=== PATIENT | male | born 1965 | race Caucasian/White ===

== ENCOUNTER 2022-03-28 19:55 | Inpatient (IN) ==
--- NOTE | 2022-03-28 23:21 | Emergency Department Note ---
History of Present Illness General Chief complaint: Abdominal Pain Stated complaint: ABD PAIN Time Seen by Provider: 03/28/22 23:11 History of Present Illness Maximum Pain Intensity: 1 56-year-old male presents emergency department with approximately 12-hour history of a nagging epigastric abdominal cramping pain. Patient states it is nonradiating it started earlier this morning. Patient denies vomiting denies diarrhea. Patient recently had blood work that was normal. Patient states that he does take a statin. Patient denies chest pressure or shortness of breath. Patient states that he did take an Nexium he has a history of some gastritis in the past. Patient was concerned as the pain continues and is nagging in nature. There is no radiation to the back. Is currently mild to moderate. There are no other mitigating or alleviating factors. Patient states normal bowel movement today. Home Medications Medication Instructions Recorded Confirmed Type ASPIRIN 325 mg PO DAILY ##0 07/23/15 History Amlodipine (Norvasc) 5 mg PO DAILY #0 tabs 07/23/15 History CLONIDINE HCL (CATAPRES) 0.2 mg PO BID #0 tabs 07/23/15 History ESOMEPRAZOLE MAGNESIUM (NEXIUM) 40 mg PO DAILY #0 caps 07/23/15 History Propranolol (Inderal) 120 mg PO BID #0 tabs 07/23/15 History Allergies Allergy/AdvReac Type Severity Reaction Status Date / Time No Known Allergies Allergy Unverified 07/23/15 22:04 Past Med/Surg History Medical History (Updated 03/29/22 @ 02:03 by Mariusz Jolley DO) GERD (gastroesophageal reflux disease) Hypertension Migraine Social History Smoking Status: Never smoker current occupational status: employed Feels Safe at Home: Yes 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 Review of Systems A total of 10 systems reviewed and were otherwise negative Constitutional: no fever Respiratory: no cough Cardiovascular: no chest pain Gastrointestinal: + abdominal pain; no cramping, no constipation and no fecal incontinence Musculoskeletal: no back pain Physical Exam Vital Signs Vital Signs - 24 hr 03/28/22 19:58 03/28/22 23:55 03/29/22 00:53 Temperature 36.8 C 36.9 C Temperature Source Temporal Artery Scan Oral Pulse Rate 79 71 Pulse Rate [Apical] 72 Respiratory Rate 18 18 16 Respiratory Effort / Characteristics Non-Labored Spontaneous Respiratory Depth Normal Blood Pressure 173/119 H 168/103 H Blood Pressure [Left Arm] 148/86 H Blood Pressure Mean 137 124 Blood Pressure Mean [Left Arm] 106 Pulse Oximetry 97 98 97 Oxygen Delivery Method Room Air Room Air Room Air Sepsis Recent Fever Within 48 Hours No Sepsis New/Unexplained Change in Mental Status No Sepsis Action Taken by Nursing No Action Required 03/29/22 01:39 Temperature 37.2 C Temperature Source Pulse Rate 88 Pulse Rate [Apical] Respiratory Rate 15 Respiratory Effort / Characteristics Respiratory Depth Blood Pressure 109/44 L Blood Pressure [Left Arm] Blood Pressure Mean 65 Blood Pressure Mean [Left Arm] Pulse Oximetry 91 Oxygen Delivery Method Room Air Sepsis Recent Fever Within 48 Hours Sepsis New/Unexplained Change in Mental Status Sepsis Action Taken by Nursing GENERAL: Patient is awake alert in no acute distress patient is resting comfortably and showing no signs of anxiety EYES: The conjunctivae are clear. The pupils are round and reactive. EARS, NOSE, MOUTH AND THROAT: The nose is without any evidence of any deformity. Mucous membranes are moist. Tongue is midline. NECK: The neck is nontender and supple. RESPIRATORY: Normal respiratory effort is noted there is no evidence of wheezing rhonchi or rales CARDIOVASCULAR: Regular rate and rhythm noted there no murmurs rubs or gallops normal S1 normal S2. GASTROINTESTINAL: The abdomen is soft. Abdomen is nontender. Normal bowel sounds there is no abnormal aortic pulsations or masses BACK: Full range of motion MUSCULOSKELETAL/EXTREMITIES: There is no evidence of gross deformity full range of motion is noted in the hips and shoulders. SKIN: There is no obvious evidence of any rash. There are no petechiae, pallor or cyanosis noted. NEUROLOGIC: Patient is awake alert and oriented x3 strength is symmetric PSYCH: Normal affect Course Reevaluation(s) Reevaluation #1: Patient was evaluated for midepigastric abdominal pain. Patient continues to have pain. Patient was found to have a small bowel obstruction on CT. I discussed the evaluation with the patient at bedside. I started him on IV fluids, fentanyl and Zofran Time: 02:03 Consultations Consultation #1: Spoke with the [facility] hospitalist for admission Time: 02:21 Administered Medications Sodium Chloride (Nss 1000ml) 1,000 mls @ 999 mls/hr IV .Q1H1M ONE Stop: 03/29/22 02:59 Last Admin: 03/29/22 02:04 Dose: 999 mls/hr Documented By: DEEPIKA Discontinued Medications Fentanyl Citrate (Fentanyl Citrate 100 Mcg/2 Ml Vial) 50 mcg IV NOW STA Stop: 03/29/22 02:00 Last Admin: 03/29/22 02:04 Dose: 50 mcg Documented By: DEEPIKA Ioversol (Optiray 300 100ml) 100 ml IV ONCE ONE Stop: 03/29/22 00:48 Last Admin: 03/29/22 00:47 Dose: 93 ml Documented By: WILTON Ondansetron HCl (Ondansetron Inj 2 Mg/Ml 2 Ml Vial) 4 mg IV NOW STA Stop: 03/29/22 02:00 Last Admin: 03/29/22 02:04 Dose: 4 mg Documented By: DEEPIKA Medical Decision Making Medical Records Attestation: I reviewed the patient's medical records. Home Medications Current Medication List: was personally reviewed by me Laboratory Data Attestation: I reviewed the patient's lab results. Result diagrams: 03/28/22 20:30 03/28/22 20:30 Lab Results 03/28/22 03/28/22 03/28/22 Range/Units 20:30 20:30 20:30 WBC 10.21 (4.8-10.8) K/ul RBC 5.44 (4.63-6.08) M/uL Hgb 15.7 (14.0-18.0) g/dl Hct 46.5 (40.1-51.0) % MCV 85.5 (80.0-100.0) fL MCH 28.9 (25.0-34.0) pg MCHC 33.8 (32.0-36.0) g/dL RDW Std Deviation 42.0 (36.4-46.3) fL RDW Coeff of Itzel 13.5 (11.5-14.5) % Plt Count 216 (130-400) K/uL MPV 13.2 H (9.4-12.4) fL Immature Gran % (Auto) 0.3 % Neut % (Auto) 63.3 % Lymph % (Auto) 26.1 % [place] % (Auto) 8.3 % Eos % (Auto) 1.5 % Baso % (Auto) 0.5 % Neut # (Auto) 6.47 (1.4-6.5) K/uL Lymph # (Auto) 2.66 (1.2-3.4) K/uL [place] # (Auto) 0.85 H (0.24-0.82) K/uL Eos # (Auto) 0.15 (0-0.50) K/uL Baso # (Auto) 0.05 (0-0.2) K/uL Immature Gran # (Auto) 0.03 H (0.00-0.02) K/uL PT 11.1 (9.0-12.0) Seconds INR 1.0 (0.9-1.1) Sodium 136 (136-145) mmol/L Potassium 4.0 (3.5-5.1) mmol/L Chloride 99 (98-107) mmol/L Carbon Dioxide 28 (21-32) mmol/L Anion Gap 9 (3-11) BUN 18 (6-23) mg/dl Creatinine 0.92 (0.6-1.4) mg/dl Est Cr Clr Drug Dosing 110.7 ml/min Est GFR ( Amer) 108.9 ml/min Est GFR (Non-Af Amer) 94.0 ml/min BUN/Creatinine Ratio 19.6 (10-20) Glucose 87 (70-99(Fasting)) mg/dl Calcium 10.2 H (8.5-10.1) mg/dl Total Bilirubin 0.7 (0.2-1.0) mg/dl AST 27 (13-39) U/L ALT 33 (7-52) U/L Alkaline Phosphatase 53 (34-104) U/L Troponin I High Sens 5.3 (0-20) pg/ml Total Protein 7.6 (6.0-8.3) gm/dl Albumin 4.7 (3.4-5.0) gm/dl Globulin 2.9 (2.5-4.0) gm/dl Albumin/Globulin Ratio 1.6 (0.9-2) Lipase 44 (11-82) U/L Imaging Data Radiologist's Impression: Patient: ROSALINO ANDREA(Male) : 69 Status: ER Date: 03/29/22 00:59 Room #: History: PAIN AT MID ABD Slices: 753 Priors: Tech: Hector Castano @ [phone] Exams: CT ABDOMEN & PELVIS With Contrast Contrast: IV Amt: 93 ML OPTIRAY 300 Accession Numbers: [id number] Referring Physician: REFERRED SELF PreliminaryFindingsOnly See Final Report For Complete Findings CT ABDOMEN & PELVIS With Contrast: Dilated loops of small bowel measure up to 4.4 cmwith a collapsed appearance of distal small bowel loops. Findings compatible with a high-grade small bowel obstruction likelyrelated to adhesions Hepatic and splenic cysts incidentallynoted Radiologist: Donald Hunter MD Study ready at 01:03 and initial results [facility] Narrative Medical decision making differential diagnosis includes gastritis pancreatitis colitis cholecystitis cholelithiasis intra-abdominal process such as AAA which I do not suspect at this time. Cardiac event. Check labs EKG, CT abdomen pelvis. Patient was evaluated for mid epigastric abdominal pain. He underwent labs and CT imaging. Patient was found to have a small bowel obstruction. The case was discussed with the hospitalist for admission. Impression & Plan Small bowel obstruction Discharge Plan Visit Data Chief Complaint: Abdominal Pain Stated Complaint: ABD PAIN ED Provider: Mariusz Jolley Discharge Problem: Small bowel obstruction Patient Disposition: Being Evaluated by Hospitalist Forms Stand Alone Forms: [employer] Prescriptions Prescriptions: No Action ASPIRIN 325 MG tablet 325 mg PO DAILY Qty: 0 Amlodipine (Norvasc) 5 MG tablet 5 mg PO DAILY Qty: 0 CLONIDINE HCL (CATAPRES) 0.2 MG tablet 0.2 mg PO BID Qty: 0 ESOMEPRAZOLE MAGNESIUM (NEXIUM) 40 MG capsule 40 mg PO DAILY Qty: 0 Propranolol (Inderal) 80 MG tablet 120 mg PO BID Qty: 0 Referrals Referrals: Rosalino Bell [Primary Care Provider] -
[2022-03-28 23:46] LABS: Hematocrit (blood only) 46.5 % (40.1-51.0); Hemoglobin 15.7 g/dl (14.0-18.0); Mean Corpuscular Hemoglobin 28.9 pg (25.0-34.0); Mean Corpuscular Hgb Conc 33.8 g/dL (32.0-36.0); Mean Corpuscular Volume 85.5 fL (80.0-100.0); RDW Coefficient of Variation 13.5 % (11.5-14.5); Red Blood Count 5.44 M/uL (4.63-6.08); White Blood Count 10.21 K/ul (4.8-10.8)
[2022-03-28 23:54] LABS: Mean Platelet Volume 13.2 fL (9.4-12.4); Platelet Count 216 K/uL (130-400); Prothrombin Time 11.1 Seconds (9.0-12.0)
[2022-03-29 00:04] LABS: Albumin Globulin Ratio 1.6 (0.9-2); Albumin Level 4.7 gm/dl (3.4-5.0); BUN Creatinine Ratio 19.6 (10-20); Bilirubin,Total 0.7 mg/dl (0.2-1.0); Calcium 10.2 mg/dl (8.5-10.1); Creatinine Clr Calc Pharmacy 110.7 ml/min; Est GFR (African American) 108.9 ml/min; Globulin 2.9 gm/dl (2.5-4.0); Total Protein 7.6 gm/dl (6.0-8.3)
[2022-03-29 00:07] LABS: Troponin I High Sensitivity 5.3 pg/ml (0-20)
[2022-03-29 00:19] LABS: Basophils # (auto) 0.05 K/uL (0-0.2); Basophils % (auto) 0.5 %; Eosinophils # (auto) 0.15 K/uL (0-0.50); Eosinophils % (auto) 1.5 %; Immature Granulocytes # (auto) 0.03 K/uL (0.00-0.02); Immature Granulocytes % (auto) 0.3 %; Lymphocytes # (auto) 2.66 K/uL (1.2-3.4); Lymphocytes % (auto) 26.1 %; Monocytes # (auto) 0.85 K/uL (0.24-0.82); Monocytes % (auto) 8.3 %; Neutrophils # (auto) 6.47 K/uL (1.4-6.5); Neutrophils % (auto) 63.3 %
[2022-03-29] MEDS ORDERED: OPTIRAY 300 100mL IV ONE (00:47)
[2022-03-29] MEDS ORDERED: ONDANSETRON INJ 2 MG/ML 2 ML VIAL IV STA (01:59)
[2022-03-29] MEDS ORDERED: fentaNYL citrate 100 MCG/2 ML VIAL IV STA (01:59)
[2022-03-29] MEDS ORDERED: SODIUM CHLORIDE 0.9% 1000ML 1,000 ML IV ONE (01:59)
[2022-03-29 02:22] LABS: Appearance Urine Cloudy (Clear); Bacteria Urine Automated Negative (Negative); Bilirubin Urine Negative (Negative); Blood Urine Negative (Negative); Cast Urine Automated 0 /lpf (0-5); Color Urine Yellow; Epithelial Cell Urine Auto 0-5 /lpf (0-5); Glucose Urine UA Negative (Negative); Ketones Urine 1+ (Negative); Leukocyte Esterase Urine Negative (Negative); Nitrite Urine Negative (Negative); Protein Urine Negative (Negative); RBC Urine Automated 0-4 /hpf (0-4); Specific Gravity Urine > 1.045 (1.000-1.030); Urobilinogen Urine Negative (Negative); WBC Urine Automated 0 /hpf (0-5)
--- NOTE | 2022-03-29 02:33 | History & Physical Report ---
Date of Service March 29, 2022 Assessment & Plan (1) Small bowel obstruction: Plan: Rosalino Urrutia is a 56-year-old male with past medical history of hypertension, GERD, migraines who presented due to epigastric abdominal pain. Small bowel obstruction No current signs of bowel ischemia, symptoms relatively mild and pain well controlled with single dose of fentanyl in ED At this time will hold on NG tube as patient's symptoms seem to be well controlled Keep n.p.o. and start IV fluids for maintenance Antiemetics and analgesics as needed Consult general surgery Admit to [facility] Hypertension Holding home oral medications while n.p.o. We will start metoprolol tartrate 5 mg IV every 6 hours to avoid beta-bouchra withdrawal Restart home meds when able Hyperlipidemia Hold home rosuvastatin while n.p.o. GERD Hold home esomeprazole Protonix IV while n.p.o. Gout Hold home allopurinol while n.p.o. DVT prophylaxis: Lovenox FEN GI: N.p.o., LR at 125 cc/h, Protonix IV Dispo: Admit to [facility] CODE STATUS: Full (2) GERD (gastroesophageal reflux disease): (3) Hypertension: (4) Migraine: History of Present Illness Primary Care Provider: Rosalino Bell Rosalino Urrutia is a 56-year-old male with past medical history of hypertension, GERD, migraines who presented due to epigastric abdominal pain. His pain started earlier on 03/28. He took his usual Nexium as he felt initially it might be related to reflux. He states he did have a bowel movement today and actually tried to have a couple bowel movements as he also thought that might be causing his discomfort. However, his pain continued throughout the day without relief from above so he decided to come in for evaluation. Denies fever, chills, nausea, vomiting, chest pain, palpitations, shortness of breath, coughing, dark/bloody stools or unexpected weight changes. He does not have a history of abdominal surgeries. In the ED work-up significant for high-grade SBO on CT abdomen/pelvis. Lab work largely unremarkable. He received NSS 1 L bolus x1, Zofran 4 mg IV x1, fentanyl 50 mcg IV x1. Allergies Allergy/AdvReac Type Severity Reaction Status Date / Time EMILIE Inhibitors AdvReac Cough Verified 03/29/22 02:29 angio receptor bouchra AdvReac elevated Uncoded 03/29/22 02:29 otassium Home Medications Medication Instructions Recorded Confirmed Type allopurinol 100 mg tablet 100 mg PO DAILY 03/29/22 03/29/22 History amlodipine 5 mg tablet 5 mg PO DAILY 03/29/22 03/29/22 History aspirin 325 mg tablet,delayed 325 mg PO DAILY 03/29/22 03/29/22 History release cholecalciferol (vitamin D3) 125 5,000 unit PO DAILY 03/29/22 03/29/22 History mcg (5,000 unit) tablet (Vitamin D3) esomeprazole magnesium 40 mg 40 mg PO DAILY 03/29/22 03/29/22 History capsule,delayed release glucosamine sulf dipot 2 cap PO DAILY 03/29/22 03/29/22 History chlr,msm,chond 550 mg-C 30 mg-fernanda 1 mg capsule (Glucosamine Chondroitin) hydralazine 10 mg tablet 10 mg PO BID 03/29/22 03/29/22 History melatonin 5 mg tablet 5 mg PO HS 03/29/22 03/29/22 History propranolol 80 mg tablet 80 mg PO QAM 03/29/22 03/29/22 History propranolol 80 mg tablet 160 mg PO QPM 03/29/22 03/29/22 History rosuvastatin 10 mg tablet 10 mg PO QAM 03/29/22 03/29/22 History vitamin B complex 1 tab PO DAILY 03/29/22 03/29/22 History zolpidem 10 mg tablet 10 mg PO HS PRN Sleep 03/29/22 03/29/22 History Past Med/Surg History Medical History (Updated 03/29/22 @ 02:03 by Mariusz Jolley DO) GERD (gastroesophageal reflux disease) Hypertension Migraine Social History Smoking Status: Never smoker current occupational status: employed Feels Safe at Home: Yes Review of Systems Review of Systems: Per HPI Physical Exam Physical Exam: GENERAL: A&Ox3. NAD. HEENT: PERRL, EOMI. Moist mucous membranes. NECK: No JVD. No lymphadenopathy. CHEST/LUNGS: CTAB A/P. No crackles, wheezes, rales, rhonchi. HEART: RRR. No m/g/r. ABDOMEN: Mildly tender to palpation of midepigastrium, mild distention. BS+ x4 EXTREMITIES: No cyanosis, no clubbing, no edema SKIN: Warm and dry. No rashes or lesions. PSYCHIATRIC: Euthymic affect, no SI, no pressured speech, no hallucinations NEUROLOGIC: No FND. Results & Data Results & Data ([facility]) Vital Signs (Past 12 Hours) Vital Signs Temp Pulse Pulse Resp BP BP Pulse Ox 03/29/22 01:39 37.2 C 88 15 109/44 L 91 03/29/22 00:53 71 16 168/103 H 97 03/28/22 23:55 36.9 C 72 18 148/86 H 98 03/28/22 19:58 36.8 C 79 18 173/119 H 97 O2 Del Method 03/29/22 01:39 Room Air 03/29/22 00:53 Room Air 03/28/22 23:55 Room Air 03/28/22 19:58 Room Air Resident Activity Tracking Resident Involvement: Resident Care Provided Care Provided: Adult Hospital Medicine
--- NOTE | 2022-03-29 04:24 | Billing Data ---
Date of Service March 29, 2022 Coding Level of Care Code 31204 Initial Inpt Care Lvl 2
[2022-03-29] MEDS ORDERED: ONDANSETRON INJ 2 MG/ML 2 ML VIAL IV PRN (04:59)
[2022-03-29] MEDS ORDERED: ACETAMINOPHEN 1000 MG/100 ML IV IV PRN (04:59)
[2022-03-29] MEDS ORDERED: MoRPHine SULFATE 4 MG/ML 1 ML CARP\\VIAL IV PRN (04:59)
[2022-03-29] MEDS ORDERED: ACETAMINOPHEN 1,000 MG/100 ML VIAL IV PRN (05:15)
[2022-03-29] MEDS: LACTATED RINGER'S 1,000 ML IV SCH ×3 (05:29→21:25)
[2022-03-29] MEDS: MoRPHine SULFATE 2 MG/ML CARP IV PRN ×2 (05:29→13:39)
--- NOTE | 2022-03-29 05:33 | Surgery Consultation ---
Date of Consultation March 29, 2022 Assessment & Plan (1) Small bowel obstruction: The patient has been admitted on the hospitalist service. We recommend proceeding as follows: Provide analgesics as needed Provide antiemetics if needed Implement n.p.o. status. Consideration can be given to re-advancing the patient's diet upon return of bowel function, likely beginning with clear liquids Provide hydration with IV fluids which should continue until oral intake can be advanced and deemed adequate As noted, the patient has a normal white blood cell count and normal renal function. His abdominal exam at this time is essentially benign. He also has not had any nausea or vomiting since his symptoms began. Due to these facts, I feel we can hold on placing an NG tube at this time. I did discuss with the patient, however, if he has any deterioration or worsening of his abdominal exam or if he develops any nausea or vomiting consideration should be given to placing an NG tube and he is agreeable to this I discussed with the patient the cause of small bowel obstruction which he is aware of. As noted he has not had any abdominal surgeries make adhesions less likely. I do not appreciate any hernias on my exam other than a small umbilical hernia but his CAT scan does not show that this contains any loops of bowel. His symptomatology may be due to an enteritis. We will continue to monitor clinically with the plan as outlined above with further recommendations based on his clinical course as it unfolds Remainder of plan as directed by primary service Supervising Physician Co-Signing Physician Notes Patient seen and examined, labs and image reviewed, agree with above. 56-year-old male with no history of abdominal surgery presents with abdominal pain. CT indicates small bowel obstruction. He did have bowel movements yesterday but is not passing flatus. No nausea or significant abdominal pain at this time. On exam he is afebrile with stable vitals. Abdomen is soft, nontender, mildly distended. Labs unremarkable. CT scan personally reviewed and interpreted by myself, agree with distended bowel tapering to decompressed bowel in the mid abdomen. Appears to be some fecalization. No mass or hernia causing obstruction. Though this represents a [place] bowel obstruction, most are still related to adhesions. We will obtain a KUB, and potentially perform a small bowel follow-through either today or tomorrow. 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 He presented to the emergency department secondary to abdominal pain. Patient says his symptoms began on 03/28/2022. He does note that in the morning of this day he woke up feeling fine. He noted that he had a normal bowel movement that morning but he said about midday he developed some abdominal discomfort that he noted was greatest in the periumbilical area. He notes the pain did not radiate and he did not note palliative or provocative factors. He specifically notes that he has not had any nausea or vomiting. Since his symptoms began he has not had a bowel movement or passed flatus. He notes that he has never had any abdominal surgeries. He notes that he has not had any fevers, shakes, or chills. No close contacts are ill. He has had a colonoscopy in the past at which time he says polyps were removed but to the best of his knowledge there is no other concerning pathology. Since arrival to the hospital the patient has had labs and imaging which I independently reviewed. A CT scan of the abdomen pelvis showed the patient had some dilated loops of small bowel with a collapsed appearance of distal small bowel concerning for high-grade small bowel obstruction. Labs included a CBC her white blood cell count, hemoglobin, hematocrit, and platelet count were all normal. Chemistry profile showed sodium, potassium, BUN, and creatinine were normal. There is no elevation of his LFTs. Lipase was noted to be normal. Urinalysis was not indicative of infection. A COVID test was negative. At the time of my interview the patient was resting comfortably in bed and he was in no distress. Allergies Allergy/AdvReac Type Severity Reaction Status Date / Time EMILIE Inhibitors AdvReac Cough Verified 03/29/22 02:29 ARB-Angiotensin Receptor AdvReac Hyperkalemi Verified 03/29/22 05:06 Antagonist a Home Medications Medication Instructions Recorded Confirmed Type allopurinol 100 mg tablet 100 mg PO DAILY 03/29/22 03/29/22 History amlodipine 5 mg tablet 5 mg PO DAILY 03/29/22 03/29/22 History aspirin 325 mg tablet,delayed 325 mg PO DAILY 03/29/22 03/29/22 History release cholecalciferol (vitamin D3) 125 5,000 unit PO DAILY 03/29/22 03/29/22 History mcg (5,000 unit) tablet (Vitamin D3) esomeprazole magnesium 40 mg 40 mg PO DAILY 03/29/22 03/29/22 History capsule,delayed release glucosamine sulf dipot 2 cap PO DAILY 03/29/22 03/29/22 History chlr,msm,chond 550 mg-C 30 mg-fernanda 1 mg capsule (Glucosamine Chondroitin) hydralazine 10 mg tablet 10 mg PO BID 03/29/22 03/29/22 History melatonin 5 mg tablet 5 mg PO HS 03/29/22 03/29/22 History propranolol 80 mg tablet 80 mg PO QAM 03/29/22 03/29/22 History propranolol 80 mg tablet 160 mg PO QPM 03/29/22 03/29/22 History rosuvastatin 10 mg tablet 10 mg PO QAM 03/29/22 03/29/22 History vitamin B complex 1 tab PO DAILY 03/29/22 03/29/22 History zolpidem 10 mg tablet 10 mg PO HS PRN Sleep 03/29/22 03/29/22 History Patient History Medical History GERD (gastroesophageal reflux disease) Hypertension Migraine Social History Smoking Status: Never smoker Second Hand Exposure: No; Hx Alcohol Use: Yes (socially) Hx Substance Use: No Preferred Language: Tamazight Communication Ability: Effective Toll Line Inspector Required: No Beliefs That Will Affect Care: None Current Living Situation: Spouse current occupational status: employed Feels Safe at Home: Yes Assistive Devices: None Review of Systems Constitutional: no fever and no chills Eyes: + corrective lenses Ear, Nose, Mouth, Throat: no ear pain Respiratory: no cough and no dyspnea Cardiovascular: no chest pain Gastrointestinal: + abdominal pain; no nausea and no vomiting Genitourinary: no dysuria Musculoskeletal: no back pain Integumentary: no rash Neurologic: no localized weakness Physical Exam Constitutional: WD/WN, vitals as above Eyes: PERRL, conjunctivae normal, anicteric sclerae Wears glasses ENMT: Ears: no hearing impairment and no external ear abnormality Oral mucous membranes are dry Neck: trachea midline Respiratory: normal respiratory effort, lungs clear to auscultation Cardiovascular: Rate/Rhythm: regular rate and regular rhythm Vessels: dorsalis pedis pulses present and radial pulses present Gastrointestinal (Abdomen): Patient's abdomen is noted to have minimal distention but otherwise soft and nonrigid. Bowel sounds are present but hypoactive. Patient did have a small umbilical hernia palpable. I did not appreciate any inguinal hernias. There is no rebound tenderness or guarding. No pain is noted with palpation. Slight tympany is noted with percussion. Musculoskeletal: No gross orthopedic abnormalities. No calf tenderness. Skin: no rashes Neurologic: moves all extremities Psychiatric: A+Ox3, euthymic affect Results & Data ([facility]) Vital Signs (Past 12 Hours) Vital Signs Temp Pulse Pulse Resp BP BP Pulse Ox 03/29/22 05:13 03/29/22 04:47 68 21 178/98 H 96 03/29/22 04:59 36.6 C 69 18 154/88 H 94 03/29/22 02:04 73 13 158/102 H 96 03/29/22 01:39 37.2 C 88 15 109/44 L 91 03/29/22 00:53 71 16 168/103 H 97 03/28/22 23:55 36.9 C 72 18 148/86 H 98 03/28/22 19:58 36.8 C 79 18 173/119 H 97 O2 Del Method 03/29/22 05:13 Room Air 03/29/22 04:47 Room Air 03/29/22 04:59 Room Air 03/29/22 02:04 Room Air 03/29/22 01:39 Room Air 03/29/22 00:53 Room Air 03/28/22 23:55 Room Air 03/28/22 19:58 Room Air PG Care Time/CCT Total # of Minutes Spent Total Time Spent with Patient: Total time spent is greater than 50% in coordination of care (as documented) at patient's floor/unit and/or counseling patient: Coding Level of Care Code 84249 Inpt Consult Level 5 Diagnoses Small bowel obstruction K56.609
[2022-03-29] MEDS: ENOXAPARIN INJ 40 MG/0.4 ML SYR SQ SCH ×2 (06:32→18:39)
[2022-03-29] MEDS: METOPROLOL TARTRATE 1 MG/ML VIAL IV SCH ×3 (06:40→18:39)
--- NOTE | 2022-03-29 07:53 | CT Scan Report ---
ABDOMEN AND PELVIS CT WITH IV CONTRAST CT DOSE: 1083.64 mGy.cm HISTORY: Mid abdominal pain. TECHNIQUE: Multiaxial CT images of the abdomen and pelvis were performed following the use of intrave nous contrast. A dose lowering technique was utilized adhering to the principles of ALARA. COMPARISON STUDY: None. FINDINGS: There is a punctate calcified, the right lung base. The left lung base is clear. No pneumop eritoneum. No pneumatosis. Moderate hepatic steatosis. A few small scattered hypodense lesions within the liver with the largest in the left hepatic lobe measuring 1.1 cm. These favor cysts. There is a 3.3 cm hypodense splenic lesion. This favors a benign lesion. The adrenal glands, pancreas, and gallb ladder are unremarkable. Mild bilateral perinephric edema which is likely chronic. The kidneys enhanc e normally. No hydronephrosis. The main portal vein is patent. Normal caliber abdominal aorta. No ret roperitoneal or pelvic lymphadenopathy. Small fat-containing right inguinal hernia. Mild bladder wall thickening which is likely due to underdistention. Colonic diverticulosis. No evidence for acute div erticulitis. Normal appendix. The proximal small bowel is distended with a transition point within th e left mid abdomen on image 53 at the mid jejunum. This is consistent with a small bowel obstruction. The proximal jejunum measures up to 4.3 cm in diameter. There is trace mesenteric edema/fluid. The r emaining small bowel distal to this transition point is decompressed. IMPRESSION: 1. High-grade small bowel obstruction with the transition point located at the mid jejunum within the left side of the abdomen. 2. Additional findings as described above ACT 112: Negative or not required by law. Electronically signed by: Dc Suarez M.D. 03/29/2022 7:51 AM
--- NOTE | 2022-03-29 10:52 | Hospitalist Progress Note ---
Date of Service March 29, 2022 Assessment & Plan (1) Small bowel obstruction: Plan: 56 yo male PMHx of hypertension, GERD, migraines who presented due to epigastric abdominal pain. Small bowel obstruction No signs of bowel ischemia, symptoms relatively mild and pain well controlled with single dose of fentanyl in ED - CT A/P: high grade SBO with transition point, colonic diverticulosis, small R inguinal hernia - no prior abd surgeries hold on NG tube as patient's symptoms seem to be well controlled NPO, IVF; advance diet when able Antiemetics and analgesics as needed Gen surg consulted: no surgery at this time, will consider small bowel follow- through study tomorrow Hypertension Holding home oral medications while n.p.o. cont. metoprolol tartrate 5 mg IV q6h to avoid beta-bouchra withdrawal Restart home meds when able Hyperlipidemia Hold home rosuvastatin while n.p.o. GERD Hold home esomeprazole Protonix IV while n.p.o. Gout Hold home allopurinol while n.p.o. DVT prophylaxis: Lovenox FEN GI: N.p.o., LR at 125 cc/h, Protonix IV Dispo: Med Surg CODE STATUS: Full (2) GERD (gastroesophageal reflux disease): (3) Hypertension: (4) Migraine: Admission and Anticipated Discharge Date Admission Date: March 29, 2022 Supervising Physician Co-Signing Physician Notes Attending attestation Pt seen and examined in concert with Dr. Winter. In agreement with the documented findings as noted in the resident documentation with any exceptions or additions as noted here. Reports pain controlled on present medication regimen. Chronic reflux symptoms continue to be present but reports no significant nausea/vomiting. No flatus at present. Birthday tomorrow. Does have FHx of SBO in sister following C/S, recent colonoscopy without sig nificant pathology, no other reported FHx On examination, S1/S2 nl RRR no MCG. CTAB. Abd minimally distended with mild TTP predominantly epigastric. BS active throughout. Small bowel obstruction - surgical consult - continue NPO w/ IVF with NGT if symptoms worsening. Per patient, surgery planning small bowel follow through tomorrow if no improvement. Else see resident documentation as noted. Subjective Seen at bedside this morning. NPO. Midepigastric abd pain. Pain moderately controlled. Had BM yesterday, no blood or mucous in stool. Denies chest pain, sob, N/V, headache, constipation, diarrhea. Review of Systems Review of Systems: All systems reviewed & are unremarkable except as noted in HPI & below Physical Exam Physical Exam: GENERAL: AOx3. NAD. HEENT: EOMI. Moist mucous membranes. NECK: No JVD.Trachea midline. CHEST/LUNGS: CTAB. No crackles, wheezes, rales, rhonchi. HEART: RRR. No m/g/r. ABDOMEN: Mildly tender to palpation of midepigastrium, mild distention. Soft. +BS. No guarding or rebound tenderness. EXTREMITIES: No cyanosis, no clubbing, no edema SKIN: Warm and dry. No rashes or lesions. NEUROLOGIC: No focal neuro deficits. Results & Data Results & Data ([facility]) Vital Signs (Past 12 Hours) Vital Signs Temp Pulse Pulse Pulse Resp BP BP 03/29/22 08:00 36.8 C 64 20 163/92 H 03/29/22 06:40 61 152/88 H 03/29/22 06:35 64 152/88 H 03/29/22 05:13 03/29/22 04:47 68 21 178/98 H 03/29/22 04:59 36.6 C 69 18 154/88 H 03/29/22 02:04 73 13 158/102 H 03/29/22 01:39 37.2 C 88 15 109/44 L 03/29/22 00:53 71 16 168/103 H 03/28/22 23:55 36.9 C 72 18 148/86 H Pulse Ox O2 Del Method 03/29/22 08:00 94 Room Air 03/29/22 06:40 03/29/22 06:35 03/29/22 05:13 Room Air 03/29/22 04:47 96 Room Air 03/29/22 04:59 94 Room Air 03/29/22 02:04 96 Room Air 03/29/22 01:39 91 Room Air 03/29/22 00:53 97 Room Air 03/28/22 23:55 98 Room Air Laboratory Results 03/29/22 03/29/22 03/28/22 Range/Units 02:07 02:07 20:30 WBC (4.8-10.8) K/ul RBC (4.63-6.08) M/uL Hgb (14.0-18.0) g/dl Hct (40.1-51.0) % MCV (80.0-100.0) fL MCH (25.0-34.0) pg MCHC (32.0-36.0) g/dL RDW Std Deviation (36.4-46.3) fL RDW Coeff of Itzel (11.5-14.5) % Plt Count (130-400) K/uL MPV (9.4-12.4) fL Immature Gran % (Auto) % Neut % (Auto) % Lymph % (Auto) % [place] % (Auto) % Eos % (Auto) % Baso % (Auto) % Neut # (Auto) (1.4-6.5) K/uL Lymph # (Auto) (1.2-3.4) K/uL [place] # (Auto) (0.24-0.82) K/uL Eos # (Auto) (0-0.50) K/uL Baso # (Auto) (0-0.2) K/uL Immature Gran # (Auto) (0.00-0.02) K/uL PT (9.0-12.0) Seconds INR (0.9-1.1) Sodium 136 (136-145) mmol/L Potassium 4.0 (3.5-5.1) mmol/L Chloride 99 (98-107) mmol/L Carbon Dioxide 28 (21-32) mmol/L Anion Gap 9 (3-11) BUN 18 (6-23) mg/dl Creatinine 0.92 (0.6-1.4) mg/dl Est Cr Clr Drug Dosing 110.7 ml/min Est GFR ( Amer) 108.9 ml/min Est GFR (Non-Af Amer) 94.0 ml/min BUN/Creatinine Ratio 19.6 (10-20) Glucose 87 (70-99(Fasting)) mg/dl Calcium 10.2 H (8.5-10.1) mg/dl Total Bilirubin 0.7 (0.2-1.0) mg/dl AST 27 (13-39) U/L ALT 33 (7-52) U/L Alkaline Phosphatase 53 (34-104) U/L Troponin I High Sens 5.3 (0-20) pg/ml Total Protein 7.6 (6.0-8.3) gm/dl Albumin 4.7 (3.4-5.0) gm/dl Globulin 2.9 (2.5-4.0) gm/dl Albumin/Globulin Ratio 1.6 (0.9-2) Lipase 44 (11-82) U/L Urine Color Yellow Urine Appearance Cloudy A (Clear) Urine pH 7.0 (4.5-7.5) Ur Specific [place] > 1.045 H (1.000-1.030) Urine Protein Negative (Negative) Urine Glucose (UA) Negative (Negative) Urine Ketones 1+ H (Negative) Urine Blood Negative (Negative) Urine Nitrite Negative (Negative) Urine Bilirubin Negative (Negative) Urine Urobilinogen Negative (Negative) Ur Leukocyte Esterase Negative (Negative) Urine WBC (Auto) 0 (0-5) /hpf Urine RBC (Auto) 0-4 (0-4) /hpf U Hyaline Cast (Auto) 0 (0-5) /lpf U Epithel Cells (Auto) 0-5 (0-5) /lpf Urine Bacteria (Auto) Negative (Negative) SARS-CoV-2, RNA, NAAT NEGATIVE (NEGATIVE) 03/28/22 03/28/22 Range/Units 20:30 20:30 WBC 10.21 (4.8-10.8) K/ul RBC 5.44 (4.63-6.08) M/uL Hgb 15.7 (14.0-18.0) g/dl Hct 46.5 (40.1-51.0) % MCV 85.5 (80.0-100.0) fL MCH 28.9 (25.0-34.0) pg MCHC 33.8 (32.0-36.0) g/dL RDW Std Deviation 42.0 (36.4-46.3) fL RDW Coeff of Itzel 13.5 (11.5-14.5) % Plt Count 216 (130-400) K/uL MPV 13.2 H (9.4-12.4) fL Immature Gran % (Auto) 0.3 % Neut % (Auto) 63.3 % Lymph % (Auto) 26.1 % [place] % (Auto) 8.3 % Eos % (Auto) 1.5 % Baso % (Auto) 0.5 % Neut # (Auto) 6.47 (1.4-6.5) K/uL Lymph # (Auto) 2.66 (1.2-3.4) K/uL [place] # (Auto) 0.85 H (0.24-0.82) K/uL Eos # (Auto) 0.15 (0-0.50) K/uL Baso # (Auto) 0.05 (0-0.2) K/uL Immature Gran # (Auto) 0.03 H (0.00-0.02) K/uL PT 11.1 (9.0-12.0) Seconds INR 1.0 (0.9-1.1) Sodium (136-145) mmol/L Potassium (3.5-5.1) mmol/L Chloride (98-107) mmol/L Carbon Dioxide (21-32) mmol/L Anion Gap (3-11) BUN (6-23) mg/dl Creatinine (0.6-1.4) mg/dl Est Cr Clr Drug Dosing ml/min Est GFR ( Amer) ml/min Est GFR (Non-Af Amer) ml/min BUN/Creatinine Ratio (10-20) Glucose (70-99(Fasting)) mg/dl Calcium (8.5-10.1) mg/dl Total Bilirubin (0.2-1.0) mg/dl AST (13-39) U/L ALT (7-52) U/L Alkaline Phosphatase (34-104) U/L Troponin I High Sens (0-20) pg/ml Total Protein (6.0-8.3) gm/dl Albumin (3.4-5.0) gm/dl Globulin (2.5-4.0) gm/dl Albumin/Globulin Ratio (0.9-2) Lipase (11-82) U/L Urine Color Urine Appearance (Clear) Urine pH (4.5-7.5) Ur Specific [place] (1.000-1.030) Urine Protein (Negative) Urine Glucose (UA) (Negative) Urine Ketones (Negative) Urine Blood (Negative) Urine Nitrite (Negative) Urine Bilirubin (Negative) Urine Urobilinogen (Negative) Ur Leukocyte Esterase (Negative) Urine WBC (Auto) (0-5) /hpf Urine RBC (Auto) (0-4) /hpf U Hyaline Cast (Auto) (0-5) /lpf U Epithel Cells (Auto) (0-5) /lpf Urine Bacteria (Auto) (Negative) SARS-CoV-2, RNA, NAAT (NEGATIVE) Resident Activity Tracking Resident Involvement: Resident Care Provided Care Provided: Adult Hospital Medicine
--- NOTE | 2022-03-29 12:58 | XRay Report ---
KUB HISTORY: Acute generalized abdominal pain eval for SBO COMPARISON: CT abdomen and pelvis-12:38 AM FINDINGS: Mild fecal retention. A stool-filled loop of small bowel within the left midabdomen measure s up to 4.3 cm , similar to the prior exam. Contrast is noted within the urinary bladder. No renal c alculi. No ureteral calculi. No pneumoperitoneum or pneumatosis. No fracture. IMPRESSION: Dilated stool-filled loop of small bowel within the left midabdomen is redemonstrated compatible with obstruction. Continued follow-up is needed. ACT 112: Negative or not required by law. The above report was generated using voice recognition software. It may contain grammatical, syntax o r spelling errors. Electronically signed by: Travis Pittman M.D. 03/29/2022 12:57 PM
[2022-03-29] MEDS: PANTOprazole 40 MG in SYRINGE 0 ML IV SCH (13:39)
[2022-03-30] MEDS: METOPROLOL TARTRATE 1 MG/ML VIAL IV SCH ×4 (00:45→18:26)
[2022-03-30] MEDS: LACTATED RINGER'S 1,000 ML IV SCH ×2 (05:27→14:03)
--- NOTE | 2022-03-30 06:12 | Electrocardiogram Report ---
Test Reason : Blood Pressure : / mmHG Vent. Rate : 066 BPM Atrial Rate : 066 BPM P-R Int : 176 ms QRS Dur : 090 ms QT Int : 402 ms P-R-T Axes : 041 008 005 degrees QTc Int : 421 ms Normal sinus rhythm Possible Left atrial enlargement Borderline ECG When compared with ECG of 01-OCT-2018 18:38, No significant change was found Confirmed by Edin Jerez ([id number]) on 03/30/2022 6:12:05 AM Referred By: REFERRED SELF Confirmed By:Edin Jerez
[2022-03-30] MEDS: ENOXAPARIN INJ 40 MG/0.4 ML SYR SQ SCH ×2 (06:18→18:25)
--- NOTE | 2022-03-30 06:52 | Hospitalist Progress Note ---
Date of Service March 30, 2022 Assessment & Plan (1) Small bowel obstruction: Plan: 56 yo male PMHx of hypertension, GERD, migraines who presented due to epigastric abdominal pain. Small bowel obstruction No signs of bowel ischemia, symptoms relatively mild and pain well controlled with single dose of fentanyl in ED - CT A/P (03/29): high grade SBO with transition point, colonic diverticulosis, small R inguinal hernia - KUB (03/30): persistent but resolving SBO - no prior abd surgeries tolerating clears, advance as tolerated; IVF d/c'd with good oral intake Antiemetics and analgesics as needed Gen surg consulted: no surgery at this time, NG tube not necessary Hypertension Holding home oral medications while advancing diet, BP stable cont. metoprolol tartrate 5 mg IV q6h to avoid beta-bouchra withdrawal Restart home meds when able Hyperlipidemia Hold home rosuvastatin GERD Hold home esomeprazole Protonix IV Gout Hold home allopurinol DVT prophylaxis: Lovenox FEN GI: Clears, Protonix IV Dispo: Med Surg CODE STATUS: Full (2) GERD (gastroesophageal reflux disease): (3) Hypertension: (4) Migraine: Admission and Anticipated Discharge Date Admission Date: March 29, 2022 Supervising Physician Co-Signing Physician Notes Attending attestation Pt seen and examined in concert with Dr. Winter. In agreement with the documented findings as noted in the resident documentation with any exceptions or additions as noted here. Overnight reports resolution in pain and +ve bowel movement. Tolerating clears today. FHx of SBO in sister following C/S, recent colonoscopy without significant pathology, no other reported FHx VS, nursing notes reviewed. On examination, S1/S2 nl RRR no MCG. CTAB. Abd minimally distended with mild TTP predominantly epigastric. BS active throughout. Small bowel obstruction - surgical consult - improving. Advance diet as tolerated and monitor closely. Encourage ambulation. Else see resident documentation as noted. Subjective Seen at bedside this morning. Had gas/BMs yesterday. Pain improving, no pain meds since yesterday. Denies chest pain, sob, N/V, headache, constipation, diarrhea. Review of Systems Review of Systems: All systems reviewed & are unremarkable except as noted in HPI & below Physical Exam Physical Exam: GENERAL: AOx3. NAD. HEENT: EOMI. Moist mucous membranes. NECK: No JVD.Trachea midline. CHEST/LUNGS: CTAB. No crackles, wheezes, rales, rhonchi. HEART: RRR. No m/g/r. ABDOMEN: Mildly tender to palpation of midepigastrium, mild distention. Soft. +BS. No guarding or rebound tenderness. EXTREMITIES: No cyanosis, no clubbing, no edema SKIN: Warm and dry. No rashes or lesions. NEUROLOGIC: No focal neuro deficits. Results & Data Results & Data ([facility]) Vital Signs (Past 12 Hours) Vital Signs Temp Pulse Pulse Resp BP BP Pulse Ox 03/30/22 06:19 67 128/77 03/30/22 06:17 67 18 128/77 03/30/22 02:54 37.0 C 68 18 144/81 H 95 03/29/22 23:15 71 03/30/22 00:45 72 143/87 H 03/30/22 00:04 72 143/87 H 03/29/22 23:04 37.0 C 69 18 143/90 H 91 03/29/22 19:01 36.9 C 62 18 144/75 H 94 O2 Del Method 03/30/22 06:19 03/30/22 06:17 03/30/22 02:54 Room Air 03/29/22 23:15 03/30/22 00:45 03/30/22 00:04 03/29/22 23:04 Room Air 03/29/22 19:01 Room Air Laboratory Results 03/30/22 03/30/22 Range/Units 09:24 09:24 WBC 6.32 (4.8-10.8) K/ul RBC 4.85 (4.63-6.08) M/uL Hgb 14.0 (14.0-18.0) g/dl Hct 42.5 (40.1-51.0) % MCV 87.6 (80.0-100.0) fL MCH 28.9 (25.0-34.0) pg MCHC 32.9 (32.0-36.0) g/dL RDW Std Deviation 43.5 (36.4-46.3) fL RDW Coeff of Itzel 13.5 (11.5-14.5) % Plt Count 174 (130-400) K/uL MPV 12.5 H (9.4-12.4) fL Sodium 140 (136-145) mmol/L Potassium 4.0 (3.5-5.1) mmol/L Chloride 104 (98-107) mmol/L Carbon Dioxide 29 (21-32) mmol/L Anion Gap 7 (3-11) BUN 12 (6-23) mg/dl Creatinine 0.94 (0.6-1.4) mg/dl Est Cr Clr Drug Dosing 106.3 ml/min Est GFR ( Amer) 105.4 ml/min Est GFR (Non-Af Amer) 90.9 ml/min BUN/Creatinine Ratio 12.8 (10-20) Glucose 78 (70-99(Fasting)) mg/dl Calcium 9.0 (8.5-10.1) mg/dl Magnesium 1.8 (1.7-2.4) mg/dl Total Bilirubin 0.7 (0.2-1.0) mg/dl Direct Bilirubin 0.1 (0-0.2) mg/dl AST 26 (13-39) U/L ALT 29 (7-52) U/L Alkaline Phosphatase 44 (34-104) U/L Total Protein 6.4 (6.0-8.3) gm/dl Albumin 4.0 (3.4-5.0) gm/dl Resident Activity Tracking Resident Involvement: Resident Care Provided Care Provided: Adult Hospital Medicine
--- NOTE | 2022-03-30 08:13 | Surgery Progress Note ---
Date of Service March 30, 2022 Assessment & Plan (1) Small bowel obstruction: Plan: Patient with no previous abdominal surgical history here with concerns for SBO Today he is feeling much better. Passed some loose stools yesterday with some flatus Abdomen is soft, non tender. He denies n/v. Will obtain KUB today, if shows some improvement will begin clear liquids If any concern for worsening symptoms and/or KUB worse we will consider SBFT Admission and Anticipated Discharge Date Admission Date: March 29, 2022 Supervising Physician Co-Signing Physician Notes Pnt seen and examined, agree with above. improving, passing flatus. abd soft. kub with slight improvement. tolerating clears, advance to fulls. If resolves recommend GI consult as outpatient with possible advanced endoscopy, capsule endoscopy or CT/MR enterography Subjective Patient states he is feeling a lot better. Denies any abdominal pain. Had multiple loose BMs yesterday and is starting to pass some gas. No nausea/vomiting. Is walking the hallways. Physical Exam Physical Exam: awake/alert, no distress Respiratory: normal respiratory effort Gastrointestinal (Abdomen): Inspection/Auscultation: abdomen not distended Percussion/Palpation: abdomen soft; abdomen nontender Results & Data ([facility]) Vital Signs (Past 12 Hours) Vital Signs Temp Pulse Pulse Resp BP BP Pulse Ox 03/30/22 06:19 67 128/77 03/30/22 06:17 67 18 128/77 03/30/22 02:54 37.0 C 68 18 144/81 H 95 03/29/22 23:15 71 03/30/22 00:45 72 143/87 H 03/30/22 00:04 72 143/87 H 03/29/22 23:04 37.0 C 69 18 143/90 H 91 O2 Del Method 03/30/22 06:19 03/30/22 06:17 03/30/22 02:54 Room Air 03/29/22 23:15 03/30/22 00:45 03/30/22 00:04 03/29/22 23:04 Room Air PG Care Time/CCT Total # of Minutes Spent Total Time Spent with Patient: Total time spent is greater than 50% in coordination of care (as documented) at patient's floor/unit and/or counseling patient: Coding Level of Care Code 76872 Subseq Hosp Care Lvl 1 Diagnoses Small bowel obstruction K56.733
[2022-03-30 09:52] LABS: Hematocrit (blood only) 42.5 % (40.1-51.0); Mean Corpuscular Hemoglobin 28.9 pg (25.0-34.0); Mean Corpuscular Hgb Conc 32.9 g/dL (32.0-36.0); Mean Corpuscular Volume 87.6 fL (80.0-100.0); Mean Platelet Volume 12.5 fL (9.4-12.4); Platelet Count 174 K/uL (130-400); RDW Coefficient of Variation 13.5 % (11.5-14.5); RDW Standard Deviation 43.5 fL (36.4-46.3); Red Blood Count 4.85 M/uL (4.63-6.08); White Blood Count 6.32 K/ul (4.8-10.8)
--- NOTE | 2022-03-30 10:29 | XRay Report ---
KUB CLINICAL HISTORY: Abdominal pain. Evaluate for small bowel obstruction. COMPARISON STUDY: CT of the abdomen and pelvis and KUB March 29, 2022. FINDINGS: A few loops of mildly dilated small bowel are noted. The small bowel loops measure up to 4. 1 cm in caliber. Small bowel dilatation has likely improved since CT of March 29, 2022 hour fluid- filled loops may be occult by radiography. IMPRESSION: Findings suggestive of a persistent, but likely slightly improved, small bowel obstructio n. ACT 112: Negative or not required by law. Electronically signed by: Ezekiel Jesus M.D. 03/30/2022 10:27 AM
[2022-03-30 10:34] LABS: BUN Creatinine Ratio 12.8 (10-20); Bilirubin Direct 0.1 mg/dl (0-0.2); Bilirubin,Total 0.7 mg/dl (0.2-1.0); Creatinine Clr Calc Pharmacy 106.3 ml/min; Est GFR (African American) 105.4 ml/min; Est GFR (Non-African American) 90.9 ml/min; Magnesium 1.8 mg/dl (1.7-2.4); Total Protein 6.4 gm/dl (6.0-8.3)
--- NOTE | 2022-03-30 11:22 | History & Physical Bridge Note ---
Date of Service March 30, 2022 History & Physical Bridge Note I have examined the patient, reviewed the History & Physical and in the interval since the performance of the History & Physical I have noted the following changes of clinical significance: no changes noted No changes OK for wisdom teeth procedure
[2022-03-30] MEDS: PANTOprazole 40 MG in SYRINGE 0 ML IV SCH (11:42)
[2022-03-31] MEDS: METOPROLOL TARTRATE 1 MG/ML VIAL IV SCH ×3 (00:09→11:38)
[2022-03-31] MEDS: ENOXAPARIN INJ 40 MG/0.4 ML SYR SQ SCH (05:15)
--- NOTE | 2022-03-31 07:51 | Surgery Progress Note ---
Date of Service March 31, 2022 Assessment & Plan (1) Small bowel obstruction: Plan: Patient overall feeling better. Denies abdominal pain/n/v Abdomen soft, non tender, less distended He is passing flatus. Did pass BM on 03/29 Tolerating liquid diet thus far. Will trial low fiber for breakfast and see how he fairs If he does well with low fiber, may be discharged to home after lunch time from our stand point F/u with GI as output for possible advanced endoscopy, capsule endoscopy or CT/MR enterography If remains admitted over wknd [facility] surgery covering Admission and Anticipated Discharge Date Admission Date: March 29, 2022 Supervising Physician Co-Signing Physician Notes resolving sbo, tolerating low fiber. No bm yet, but passing flatus. d/c to home, follow up with gi as outpatient. Subjective Patient is feeling well. Denies abdominal pain/n/v. Tolerated a full liquid diet for dinner yesterday evening. Said it did not cause any pain, but he could just tell that he ate it. Continues to pass gas. Last BM was 2 days ago. Physical Exam Physical Exam: awake/alert Gastrointestinal (Abdomen): Inspection/Auscultation: abdomen not distended Percussion/Palpation: abdomen soft; abdomen nontender Results & Data ([facility]) Vital Signs (Past 12 Hours) Vital Signs Temp Pulse Pulse Resp BP BP Pulse Ox 03/31/22 07:28 62 03/31/22 05:14 65 135/85 03/31/22 04:00 36.6 C 71 18 159/97 H 94 03/31/22 01:14 67 03/31/22 00:09 65 162/101 H 03/30/22 23:21 36.7 C 75 18 150/70 H 95 O2 Del Method 03/31/22 07:28 03/31/22 05:14 03/31/22 04:00 Room Air 03/31/22 01:14 03/31/22 00:09 03/30/22 23:21 Room Air PG Care Time/CCT Total # of Minutes Spent Total Time Spent with Patient: Total time spent is greater than 50% in coordination of care (as documented) at patient's floor/unit and/or counseling patient: Coding Level of Care Code 09722 Subseq Hosp Care Lvl 1 Diagnoses Small bowel obstruction K56.609
--- NOTE | 2022-03-31 10:33 | Discharge Summary ---
Date of Service March 31, 2022 Admission HPI Per Admitting Provider Rosalino Urrutia is a 56-year-old male with past medical history of hypertension, GERD, migraines who presented due to epigastric abdominal pain. His pain started earlier on 03/28. He took his usual Nexium as he felt initially it might be related to reflux. He states he did have a bowel movement today and actually tried to have a couple bowel movements as he also thought that might be causing his discomfort. However, his pain continued throughout the day without relief from above so he decided to come in for evaluation. Denies fever, chills, nausea, vomiting, chest pain, palpitations, shortness of breath, co ughing, dark/bloody stools or unexpected weight changes. He does not have a history of abdominal surgeries. In the ED work-up significant for high-grade SBO on CT abdomen/pelvis. Lab work largely unremarkable. He received NSS 1 L bolus x1, Zofran 4 mg IV x1, fentanyl 50 mcg IV x1. Principal Diagnosis SBO Discharge Exam GENERAL: AOx3. NAD. HEENT: EOMI. Moist mucous membranes. NECK: No JVD.Trachea midline. CHEST/LUNGS: CTAB. No crackles, wheezes, rales, rhonchi. HEART: RRR. No m/g/r. ABDOMEN: nontender, mild distention. Soft. +BS. No guarding or rebound tenderness. EXTREMITIES: No cyanosis, no clubbing, no edema SKIN: Warm and dry. No rashes or lesions. NEUROLOGIC: No focal neuro deficits. Discharge Data Allergies Allergy/AdvReac Type Severity Reaction Status Date / Time EMILIE Inhibitors AdvReac Cough Verified 03/29/22 02:29 ARB-Angiotensin Receptor AdvReac Hyperkalemi Verified 03/29/22 05:06 Antagonist a Consultations 03/29/22 02:19 ED Decision to Admit Stat 03/29/22 04:38 Consult General Surgery Stat Ordered Studies Laboratory Results WBC 6.32 K/ul (4.8-10.8) 03/30/22 09:24 RBC 4.85 M/uL (4.63-6.08) 03/30/22 09:24 Hgb 14.0 g/dl (14.0-18.0) 03/30/22 09:24 Hct 42.5 % (40.1-51.0) 03/30/22 09:24 MCV 87.6 fL (80.0-100.0) 03/30/22 09:24 MCH 28.9 pg (25.0-34.0) 03/30/22 09: MCHC 32.9 g/dL (32.0-36.0) 03/30/22 09: RDW Std Deviation 43.5 fL (36.4-46.3) 03/30/22 09: RDW Coeff of Itzel 13.5 % (11.5-14.5) 03/30/22 09: Plt Count 174 K/uL (130-400) 03/30/22 09: MPV 12.5 fL (9.4-12.4) H 03/30/22 09:24 Immature Gran % (Auto) 0.3 % 03/28/22 20:30 Neut % (Auto) 63.3 % 03/28/22 20:30 Lymph % (Auto) 26.1 % 03/28/22 20:30 [place] % (Auto) 8.3 % 03/28/22 20:30 Eos % (Auto) 1.5 % 03/28/22 20:30 Baso % (Auto) 0.5 % 03/28/22 20:30 Neut # (Auto) 6.47 K/uL (1.4-6.5) 03/28/22 20:30 Lymph # (Auto) 2.66 K/uL (1.2-3.4) 03/28/22 20:30 [place] # (Auto) 0.85 K/uL (0.24-0.82) H 03/28/22 20:30 Eos # (Auto) 0.15 K/uL (0-0.50) 03/28/22 20:30 Baso # (Auto) 0.05 K/uL (0-0.2) 03/28/22 20:30 Immature Gran # (Auto) 0.03 K/uL (0.00-0.02) H 03/28/22 20:30 PT 11.1 Seconds (9.0-12.0) 03/28/22 20:30 INR 1.0 (0.9-1.1) 03/28/22 20:30 Sodium 140 mmol/L (136-145) 03/30/22 09:24 Potassium 4.0 mmol/L (3.5-5.1) 03/30/22 09:24 Chloride 104 mmol/L (98-107) 03/30/22 09:24 Carbon Dioxide 29 mmol/L (21-32) 03/30/22 09:24 Anion Gap 7 (3-11) 03/30/22 09:24 BUN 12 mg/dl (6-23) 03/30/22 09:24 Creatinine 0.94 mg/dl (0.6-1.4) 03/30/22 09:24 Est Cr Clr Drug Dosing 106.3 ml/min 03/30/22 09:24 Est GFR ( Amer) 105.4 ml/min 03/30/22 09:24 Est GFR (Non-Af Amer) 90.9 ml/min 03/30/22 09:24 BUN/Creatinine Ratio 12.8 (10-20) 03/30/22 09:24 Glucose 78 mg/dl (70-99(Fasting)) 03/30/22 09:24 Calcium 9.0 mg/dl (8.5-10.1) 03/30/22 09:24 Magnesium 1.8 mg/dl (1.7-2.4) 03/30/22 09:24 Total Bilirubin 0.7 mg/dl (0.2-1.0) 03/30/22 09:24 Direct Bilirubin 0.1 mg/dl (0-0.2) 03/30/22 09:24 AST 26 U/L (13-39) 03/30/22 09:24 ALT 29 U/L (7-52) 03/30/22 09:24 Alkaline Phosphatase 44 U/L (34-104) 03/30/22 09:24 Troponin I High Sens 5.3 pg/ml (0-20) 03/28/22 20:30 Total Protein 6.4 gm/dl (6.0-8.3) 03/30/22 09:24 Albumin 4.0 gm/dl (3.4-5.0) 03/30/22 09:24 Globulin 2.9 gm/dl (2.5-4.0) 03/28/22 20:30 Albumin/Globulin Ratio 1.6 (0.9-2) 03/28/22 20:30 Lipase 44 U/L (11-82) 03/28/22 20:30 Urine Color Yellow 03/29/22 02:07 Urine Appearance Cloudy (Clear) A 03/29/22 02:07 Urine pH 7.0 (4.5-7.5) 03/29/22 02:07 Ur Specific [place] > 1.045 (1.000-1.030) H 03/29/22 02:07 Urine Protein Negative (Negative) 03/29/22 02:07 Urine Glucose (UA) Negative (Negative) 03/29/22 02:07 Urine Ketones 1+ (Negative) H 03/29/22 02:07 Urine Blood Negative (Negative) 03/29/22 02:07 Urine Nitrite Negative (Negative) 03/29/22 02:07 Urine Bilirubin Negative (Negative) 03/29/22 02:07 Urine Urobilinogen Negative (Negative) 03/29/22 02:07 Ur Leukocyte Esterase Negative (Negative) 03/29/22 02:07 Urine WBC (Auto) 0 /hpf (0-5) 03/29/22 02:07 Urine RBC (Auto) 0-4 /hpf (0-4) 03/29/22 02:07 U Hyaline Cast (Auto) 0 /lpf (0-5) 03/29/22 02:07 U Epithel Cells (Auto) 0-5 /lpf (0-5) 03/29/22 02:07 Urine Bacteria (Auto) Negative (Negative) 03/29/22 02:07 SARS-CoV-2, RNA, NAAT NEGATIVE (NEGATIVE) 03/29/22 02:07 Impressions Abdomen/Pelvis CT 03/28/22 23:[address] WITH IV CONTRAST CT DOSE: 1083.64 mGy.cm HISTORY: Mid abdominal pain. TECHNIQUE: Multiaxial CT images of the abdomen and pelvis were performed following the use of intravenous contrast. A dose lowering technique was utilized adhering to the principles of ALARA. COMPARISON STUDY: None. FINDINGS: There is a punctate calcified, the right lung base. The left lung base is clear. No pneumoperitoneum. No pneumatosis. Moderate hepatic steatosis. A few small scattered hypodense lesions within the liver with the largest in the left hepatic lobe measuring 1.1 cm. These favor cysts. There is a 3.3 cm hypodense splenic lesion. This favors a benign lesion. The adrenal glands, pancreas, and gallbladder are unremarkable. Mild bilateral perinephric edema which is likely chronic. The kidneys enhance normally. No hydronephrosis. The main portal vein is patent. Normal caliber abdominal aorta. No retroperitoneal or pelvic lymphadenopathy. Small fat-containing right inguinal hernia. Mild bladder wall thickening which is likely due to underdistention. Colonic diverticulosis. No evidence for acute diverticulitis. Normal appendix. The proximal small bowel is distended with a transition point within the left mid abdomen on image 53 at the mid jejunum. This is consistent with a small bowel obstruction. The proximal jejunum measures up to 4.3 cm in diameter. There is trace mesenteric edema/fluid. The remaining small bowel distal to this transition point is decompressed. IMPRESSION: 1. High-grade small bowel obstruction with the transition point located at the mid jejunum within the left side of the abdomen. 2. Additional findings as described above ACT 112: Negative or not required by law. Electronically signed by: Dc Suarez M.D. 03/29/2022 7:51 AM KUB X-Ray 03/30/22 07:00 KUB CLINICAL HISTORY: Abdominal pain. Evaluate for small bowel obstruction. COMPARISON STUDY: CT of the abdomen and pelvis and KUB March 29, 2022. FINDINGS: A few loops of mildly dilated small bowel are noted. The small bowel loops measure up to 4.1 cm in caliber. Small bowel dilatation has likely improved since CT of March 29, 2022 hour fluid-filled loops may be occult by radiography. IMPRESSION: Findings suggestive of a persistent, but likely slightly improved, small bowel obstruction. ACT 112: Negative or not required by law. Electronically signed by: Ezekiel Jesus M.D. 03/30/2022 10:27 AM Hospital Course (1) Small bowel obstruction: 56 yo male PMHx of hypertension, GERD, migraines who presented due to epigastric abdominal pain. Small bowel obstruction No signs of bowel ischemia, symptoms relatively mild and pain well controlled with single dose of fentanyl in ED - CT A/P (03/29): high grade SBO with transition point, colonic diverticulosis, small R inguinal hernia - KUB (03/30): persistent but resolving SBO - no prior abd surgeries tolerating fulls + toast, advance as tolerated; IVF d/c'd with good oral intake Antiemetics and analgesics as needed Gen surg consulted: no surgery at this time, NG tube not necessary - f/u PCP and GI for possible capsule endoscopy to evaluate source of SBO Hypertension BP stable d/c'd metoprolol tartrate 5 mg IV q6h to avoid beta-bouchra withdrawal cont. home meds Hyperlipidemia cont. home rosuvastatin GERD cont. home esomeprazole Gout cont. home allopurinol (2) GERD (gastroesophageal reflux disease): (3) Hypertension: (4) Migraine: Total Time Total Time Spent Total Time Spent (In Minutes): 30 Discharge Plan Discharge Items Patient Disposition: Home - Self-Care Reason For Visit: SBO Discharge Diagnosis: SBO Condition on Discharge: Good Activity: Per Instructions section Non-emergency contact: Primary Care Provider and [employer] Signal [employer] Call non-emergency contact if: you have any medication questions and your symptoms worsen Follow-up/Referrals: Joseph Duff [Physician] - 04/24/22 10:40 am (s/p SBO unknown etiology, referral for possible capsule endoscopy ) Rosalino Bell [Primary Care Provider] - 04/07/22 2:50 pm Diet: Full liquid Diet Comment: advance as tolerated Addtl Attending Provider Instructions: You were admitted to the hospital for a small bowel obstruction found on imaging. You were treated with bowel rest and advanced to diet as tolerated. You were seen by surgery who did not think an NG tube nor surgery was indicated at this time. To discharge she was able to tolerate full liquids with some toast reassuring is that you are doing well in the outpatient setting as long as you stay on the trajectory. We are not certain what caused your small bowel obstruction however several of these can be idiopathic in nature. We have referred you to [facility] for a possible capsule endoscopy for further evaluation. You may also discuss possibly getting a colonoscopy since you are due next year for screening. Pending Studies at Discharge: No Stand-Alone Forms: [facility] [employer] Medications and DC Order Prescriptions: Continued hydralazine 10 mg tablet 10 mg PO BID propranolol 80 mg tablet 80 mg PO QAM propranolol 80 mg tablet 160 mg PO QPM amlodipine 5 mg tablet 5 mg PO DAILY allopurinol 100 mg tablet 100 mg PO DAILY aspirin 325 mg Tablet,Delayed Release (Dr/Ec) 325 mg PO DAILY esomeprazole magnesium 40 mg capsule,delayed release(DR/EC) 40 mg PO DAILY vitamin B complex Tablet 1 tab PO DAILY zolpidem 10 mg tablet 10 mg PO HS PRN (Reason: Sleep) rosuvastatin 10 mg tablet 10 mg PO QAM melatonin 5 mg Tablet 5 mg PO HS cholecalciferol (vitamin D3) [Vitamin D3] 125 mcg (5,000 unit) Tablet 5,000 unit PO DAILY Glucosamine Chondroitin 550-30-1 mg Capsule 2 cap PO DAILY Discharge Orders: Discharge Order (Routine); Ordered 03/31/22 Ordered By: Jean-Claude Winter Admission Data Admit Date/Time: 03/29/22 02:47 Attending Provider: Wyatt Chinchilla Admit Provider: Fernando López Primary Care Provider: Rosalino Bell Other Providers: Ricky Landon ; Jose Ramon Lombardo ; Alan Klein ; Giacomo Reyez Jr ; Mono Bowman ; Mariusz Holliday ; Che Candelario ; Mendez Frias ; Cristino Mckay ; Dorothy Garner Other Interventions: Discharge Summary Assessment (RN) Last Done: 03/31/22 12:40 Supervising Physician Co-Signing Physician Notes I also saw the patient confirmed hastings portions of the history and the physical examination. I agree with the impression and plan as noted in the resident documentation. Upon exam, the patient is resting comfortably. He has been up walking the hallways. He reports positive flatus. He has tolerated breakfast and lunch without difficulty. Exam 155/97, 78, 19, 36.7, 95% on room air Heart regular Respirations nonlabored Abdomen soft nontender with easily auscultated bowel sounds Impression and plan Small bowel obstruction, resolved Discharge today Outpatient gastroenterology follow-up Gradually advance diet at home Discussed signs and symptoms which would necessitate emergent reevaluation Else see resident documentation as noted. Resident Activity Tracking Resident Involvement: Resident Care Provided Care Provided: Adult Hospital Medicine
[2022-03-31] MEDS ORDERED: PANTOprazole 40 MG TAB PO SCH (11:00)
== END 2022-03-31 13:46 | disposition home or self-care (01) | DRG 390 ==
LOC: ED 19:55 → 2N 03-29 02:47 → SUATTDRO 03-29 02:47 → 2N 03-29 04:47